=== PATIENT | female | born 1985 | race Caucasian/White ===

== ENCOUNTER 2018-03-01 08:46 | Emergency (ER) | payer OTHER ==
[2018-03-01] MEDS ORDERED: IBUPROFEN 600 MG TABLET (FP) PO ONE ×2 (08:50→09:17)
--- NOTE | 2018-03-01 08:55 | PDOC ---
History of Present Illness - General Chief Complaint: Injury Stated Complaint: RT FOOT INJURY Time Seen by Provider: 03/01/18 08:47 History Source: Patient Exam Limitations: No Limitations - History of Present Illness Initial Comments: 03/01/18 08:51 Ms. Purcell Is a 32-year-old otherwise healthy female presenting to the emergency department with right foot pain. Patient states that she was standing on a rock, lost her balance and fell off a rock while holding a child. She inverted her right ankle and fell towards the ground striking her foot. She denies any other trauma including head trauma or upper extremity trauma. She was able to assist herself to standing, since her fall she's noticed pain within her right foot. She is ambulatory but with a limp. She notes pain of the mid foot as well as lateral border of the foot PMH: Denies PSH: Denies Medication: Denies ALLERGIES: Compazine Social: Denies drug use, daily alcohol use GENERAL/CONSTITUTIONAL: No: fever, chills, weakness HEAD, EYES, EARS, NOSE AND THROAT: No: change in vision, ear pain, discharge, sore throat, throat swelling. CARDIOVASCULAR: No: chest pain, lightheadedness RESPIRATORY: No: cough, shortness of breath, wheezing, hemoptysis, stridor. GASTROINTESTINAL: No: nausea, vomiting, diarrhea, abdominal pain GENITOURINARY: No: dysuria, hematuria, frequency, urgency, flank pain. MUSCULOSKELETAL: Yes: foot pain No: back pain, neck pain SKIN: Yes: abrasion NEUROLOGIC: No: headache, vertigo, paresthesias, weakness GENERAL: The patient is in no acute distress. HEAD: Normal with no signs of trauma. EYES: PERRLA, EOMI, sclera anicteric, conjunctiva clear. NECK: Normal range of motion, supple without midline tenderness LUNGS: Breath sounds equal, clear to auscultation bilaterally. No wheezes, and no crackles. HEART:Regular rate and rhythm, normal S1 and S2 without murmur, rub or gallop. ABDOMEN: Soft, nontender EXTREMITIES: Normal range of motion Right foot specialist to palpation lateral border of the foot, mid foot specialist as well Pt is able to move toes, this causes midfoot pain sensation in tact 2+ DP, 2+ PT NEUROLOGICAL: Cranial nerves II through XII grossly intact. Normal speech. No focal neurological deficits. MUSCULOSKELETAL: see above SKIN: no bruising noted. Right lateral foot abrasion Past History - Past Medical History Allergies/Adverse Reactions: Allergies Allergy/AdvReac Type Severity Reaction Status Date / Time prochlorperazine Allergy Verified 03/01/18 08:47 [From Compazine] Home Medications: Ambulatory Orders Ibuprofen [Advil -] 200 mg PO PRN PRN 03/01/18 Naproxen Sodium [Aleve] 220 mg PO PRN PRN 03/01/18 ED Treatment Course - RADIOLOGY Radiology Studies Ordered: Category Date Time Status FOOT-RIGHT [RAD] Stat Radiology 03/01/18 08:50 Ordered Medical Decision Making - Medical Decision Making 03/01/18 08:55 32-year-old female presented to emergency department status post injury to the right foot. Differential diagnosis includes but is not limited to: Joy, pseudo-Joy, midfoot fracture. Ankle is not involved, nontender. Will do: X-ray. Will give Motrin. Will reassess 03/01/18 09:25 xray: No evidence of fracture, dislocation, subluxation No Lisfranc deformity is seen. Intact proximal aspect of the metatarsal, and adjacent tarsal bones. Proper alignment of the lateral border of the first metatarsal Will discharged home with hard sole shoe. Patient is able to [place] wrap. Continue Motrin for pain. In: Musculoskeletal injury of the right foot, initial presentation *DC/Admit/Observation/Transfer Diagnosis at time of Disposition: Right foot injury Qualifiers: Encounter type: initial encounter Qualified Code(s): S99.921A - Unspecified injury of right foot, initial encounter - Discharge Dispostion Disposition: HOME Condition at time of disposition: Stable Admit: No - Referrals Referrals: Randy Herrera MD [Staff Physician] - - Patient Instructions Printed Discharge Instructions: DI for Foot Pain Additional Instructions: Ms purcell, Thank you for coming in to the ER today Please ice, elevate and [place] wrap your foot Bacitracin to your abrasion Motrin for pain Monitor for worsening of symptoms If anything worsens, please follow up with the orthopedist - Post Discharge Activity Forms/Work/School Notes: Back to Work
[2018-03-01 09:10] VITALS: BP 108/67; PULSE 79; TEMP 98.2; BMI 28.3
== END 2018-03-01 09:45 | disposition home or self-care (01) ==
LOC: FER 08:46
DX: S99.921A Unspecified injury of right foot, initial encounter (principal); W17.89XA Other fall from one level to another, initial encounter; Y93.89 Activity, other specified; Y92.410 Unspecified street and highway as the place of occurrence of the external cause
CPT/HCPCS: 73630-TC-RT-FY; 99282-25